=== PATIENT | female | born 1960 | race Caucasian/White ===

== ENCOUNTER 2021-11-27 21:00 | Emergency (ER) | payer BC, MEDICAID, MEDICARE ==
[2021-11-27 22:21] LABS: ESTIMATED GFR 43 mL/min (>60)
== END 2021-11-27 23:15 | disposition home or self-care (01) ==
LOC: FB.ED 21:00
DX: R53.1 Weakness (principal); E86.0 Dehydration
CPT/HCPCS: 36415; 80048; 85025; 93005; 99284

== ENCOUNTER 2023-06-27 15:56 | Emergency (ER) | payer MEDICAID, MEDICARE ==
[2023-06-27 16:26] LABS: HEMATOCRIT 37.9 % (34.2-48.2); HEMOGLOBIN 12.9 g/dL (11.4-15.5); MEAN CORPUSCULAR HEMOGLOBIN 29.5 pg (23.9-33.9); MEAN CORPUSCULAR VOLUME 86.8 fL (76.7-100.5); MEAN PLATELET VOLUME 7.9 fL (7.1-12.4); PLATELET COUNT,PLT 289 x10(3)uL (151-488); RED BLOOD CELL COUNT 4.36 x10(6)uL (3.60-5.20); RED CELL DISTRIBUTION WIDTH 13.1 % (12.3-16.5); WHITE BLOOD CELL COUNT,WBC 18.3 x10-3/uL (3.0-10.3)
[2023-06-27 16:26] LABS: APPEARANCE,URINE CLOUDY (CLEAR); BACTERIA,URINE MANY (NS); BILIRUBIN,URINE NEGATIVE (NEGATIVE); COLOR,URINE YELLOW (YELLOW); GLUCOSE,URINE NORMAL (NORMAL); KETONES,URINE NEGATIVE (NEGATIVE); LEUKOCYTE ESTERASE,URINE LARGE (NEGATIVE); NITRITE,URINE POSITIVE (NEGATIVE); OCCULT BLOOD,URINE LARGE (NEGATIVE); PROTEIN,URINE NEGATIVE (NEGATIVE); SQUAMOUS EPITHELIAL CELLS,UR FEW (NS,R,O); UROBILINOGEN,URINE NORMAL (NEGATIVE); WBC,URINE 20-30 (0-5)
[2023-06-27 16:28] LABS: BLOOD UREA NITROGEN,BUN 21 mg/dL (7-18); CALCIUM 9.4 mg/dL (8.6-10.2); CARBON DIOXIDE,CO2 27 mmol/L (21-32); CHLORIDE,CL 99 mmol/L (100-110); CREATININE 1.5 mg/dL (0.55-1.02); ESTIMATED GFR 39 mL/min (>60); GLUCOSE RANDOM 127 mg/dL (80-116); POTASSIUM,K 3.7 mmol/L (3.5-5.3); SODIUM,NA 136 mmol/L (135-145)
[2023-06-27 16:32] LABS: EST CRCL DRUG DOSING (CG) 29.32 mL/min
[2023-06-27] MEDS: Sodium Chloride 0.9% 10 ML Syringe FLUSH PRN (16:32)
[2023-06-27 16:34] LABS: A/G RATIO 0.8; ALANINE AMINOTRANSFERASE,ALT 16 U/L (12-36); ALBUMIN 3.4 g/dL (3.2-4.6); ALKALINE PHOSPHATASE 102 IU/L (56-112); ASPARTATE AMNIOTRANSFERASE,AST 9 IU/L (5-25); BILIRUBIN TOTAL 1.2 mg/dL (0.1-1.3); MAGNESIUM 2.2 mg/dL (1.8-2.5); PROTEIN TOTAL,TP 7.5 g/dL (6.0-8.0)
[2023-06-27 16:36] LABS: LYMPHOCYTES PERCENT MAN 6 % (13-37); MONOCYTES PERCENT MAN 6 % (4-12); SEG NEUTROPHILS PERCENT MAN 88 % (46-82)
[2023-06-27 16:37] LABS: TROPONIN I 8.9 pg/mL (4.0-60.3)
[2023-06-27] MEDS ORDERED: Naloxone 0.4 MG/ML SDV IVPUSH PRN (16:37)
[2023-06-27 16:38] LABS: C-REACTIVE PROTEIN 26.55 mg/dL (<0.50)
[2023-06-27] MEDS: Morphine 4 MG/ML VIAL IVPUSH ONE ×2 (16:42→19:08)
[2023-06-27] MEDS: Ondansetron 4 MG/2 ML SDV IVPUSH ONE (16:42)
[2023-06-27] MEDS: Sodium Chloride 0.9% 1,000 ML IV ONE (16:44)
[2023-06-27 17:06] LABS: INFLUENZA A NAA NEGATIVE (NEGATIVE); INFLUENZA B NAA NEGATIVE (NEGATIVE); RESPIRATORY SYNCYTIAL VIR NAA NEGATIVE (NEGATIVE)
[2023-06-27 17:11] LABS: CORONAVIRUS COVID-19 NAA NEGATIVE (NEGATIVE)
[2023-06-27] MEDS: Acetaminophen 500 MG Tab PO ONE (19:09)
[2023-06-27] MEDS: cefTRIAXone 2 GM Vial IVPUSH ONE (19:31)
[2023-06-27] MEDS: Sodium Chloride 0.9% 1,000 ML IV SCH (19:50)
== END 2023-06-27 19:15 ==
LOC: FB.ED 15:56
DX: A41.9 Sepsis, unspecified organism (principal); D76.3 Other histiocytosis syndromes; N13.9 Obstructive and reflux uropathy, unspecified; I10 Essential (primary) hypertension; E78.00 Pure hypercholesterolemia, unspecified; F17.200 Nicotine dependence, unspecified, uncomplicated; Z88.8 Allergy status to other drugs, medicaments and biological substances; Z79.899 Other long term (current) drug therapy
CPT/HCPCS: 0241U; 36415; 74176; 80053; 81001; 83605; 83735; 84484; 85025; 86140; 87086; 87088; 87186; 93005; 93010; 96361; 96374; 96375; 96376; 99285; 99285-25; A9270-GY; J0696; J2270; J2405; J3490; J7030

== ENCOUNTER 2024-11-26 14:00 | Emergency (ER) | payer MEDICARE ==
[2024-11-26 14:24] LABS: MEAN PLATELET VOLUME 8.3 fL (7.1-12.4); PLATELET COUNT,PLT 305 x10(3)uL (151-488); RED BLOOD CELL COUNT 4.32 x10(6)uL (3.60-5.20); RED CELL DISTRIBUTION WIDTH 13.0 % (12.3-16.5); WHITE BLOOD CELL COUNT,WBC 12.7 x10-3/uL (3.0-10.3)
[2024-11-26 14:29] LABS: GLUCOSE,URINE NORMAL (NORMAL); OCCULT BLOOD,URINE MODERATE (NEGATIVE)
[2024-11-26 14:31] LABS: APPEARANCE,URINE SLIGHTLY CLOUDY (CLEAR)
[2024-11-26 14:33] LABS: BLOOD UREA NITROGEN,BUN 20 mg/dL (7-18); CARBON DIOXIDE,CO2 25 mmol/L (21-32); CHLORIDE,CL 104 mmol/L (100-110); CREATININE 1.9 mg/dL (0.55-1.02); ESTIMATED GFR 29 mL/min (>60); GLUCOSE RANDOM 95 mg/dL (80-116); POTASSIUM,K 4.5 mmol/L (3.5-5.3); SODIUM,NA 140 mmol/L (135-145)
[2024-11-26 14:39] LABS: A/G RATIO 1.1; ALANINE AMINOTRANSFERASE,ALT 21 U/L (12-36); ASPARTATE AMNIOTRANSFERASE,AST 15 IU/L (5-25); BILIRUBIN TOTAL 0.6 mg/dL (0.1-1.3); PROTEIN TOTAL,TP 7.0 g/dL (6.0-8.0)
[2024-11-26 14:45] LABS: EOSINOPHILS PERCENT MAN 2 % (0-5); LYMPHOCYTES PERCENT MAN 6 % (13-37); MONOCYTES PERCENT MAN 7 % (4-12); SEG NEUTROPHILS PERCENT MAN 85 % (46-82)
[2024-11-26 14:48] LABS: SQUAMOUS EPITHELIAL CELLS,UR FEW (NS,R,O)
== END 2024-11-26 15:16 | disposition home or self-care (01) ==
LOC: FB.ED 14:00
DX: N30.01 Acute cystitis with hematuria (principal); E78.00 Pure hypercholesterolemia, unspecified; I10 Essential (primary) hypertension; F17.210 Nicotine dependence, cigarettes, uncomplicated; Z88.1 Allergy status to other antibiotic agents; Z79.899 Other long term (current) drug therapy
CPT/HCPCS: 36415; 80053; 81001; 83690; 85025; 86140; 87086; 87088; 87186; 96372; 99284; J0696; 99283